=== PATIENT | female | born 1950 | race Caucasian/White ===

== ENCOUNTER 2018-04-01 14:04 | Outpatient (CLI) | payer MEDICARE, OTHER ==
[2018-04-01 14:30] LABS: CREATININE 0.8 mg/dL (0.4-1.0)
== END 2018-04-01 14:05 | disposition home or self-care (01) ==
LOC: LAB 14:04
PROVIDERS: ATTEND Nurse Practitioner Family
DX: Z79.899 Other long term (current) drug therapy (principal)
CPT/HCPCS: 36415; 82565; 84520

== ENCOUNTER 2018-04-08 14:37 | Outpatient (CLI) | payer MEDICARE, OTHER ==
--- NOTE | 2018-04-09 09:35 | DEXA Report ---
Reason: ENCOUNTER FOR SCREENING FO Procedure Date: 04/08/2018 Accession Number: [id number] / [id number] Procedure: DEX - Dexa Spine and/or Hip CPT Code: FULL RESULT: EXAM: Dexa Spine and/or Hip DATE: 04/08/2018 3:25 PM CLINICAL HISTORY: ENCOUNTER FOR SCREENING FO TECHNIQUE: Dual energy x-ray absorptiometry (DXA) was performed on a [employer] System. Regions measured are the AP Spine, femoral neck, and if needed forearm. COMPARISON: None. In accordance with the International Society for Clinical Densitometry (ISCD) guidelines, data from previous exams may be reanalyzed using current recommendations and techniques. This is done to allow a more accurate basis for comparison with the current study. FINDINGS: The data for the lumbar spine is as follows: BMD (g/cm/cm) T-SCORE Z-SCORE REGION L1 0.881 -2.1 -0.9 L2 0.953 -2.1 -0.9 L3 0.981 -1.8 -0.6 L4 0.950 -2.1 -0.9 TOTAL 0.942 -2.0 -0.8 NOTE: All evaluable vertebrae are used for classification The data for the hip is as follows: BMD (g/cm/cm) T-SCORE Z-SCORE REGION Neck 0.896 -1.0 0.2 TOTAL 0.902 -0.8 0.1 NOTE: The femoral neck or total proximal femur, whichever is lowest, is used for classification. IMPRESSION: THE WHO CLASSIFICATION BASED ON THE INTERNATIONAL REFERENCE STANDARD IS OSTEOPENIA. THE FRACTURE RISK IS INCREASED. RECOMMENDATION: Patients with diagnosis of osteoporosis or osteopenia should have regular bone mineral density assessment. For those eligible for Medicare, routine testing is allowed once every 2 years. Testing frequency can be increased for patients who have rapidly progressing disease or for those who are receiving medical therapy to restore bone mass. COMMENT: World Health Organization (WHO) definitions for osteoporosis and osteopenia: NORMAL BMD: T-score at -1.0 or higher, fracture risk is low OSTEOPENIA BMD: T-score between -1.0 and -2.5, fracture risk is increased. OSTEOPOROSIS BMD: T-score at -2.5 or lower, fracture risk is high. National Osteoporosis Foundation recommends: 1. Obtain adequate dietary calcium (at least 1200 mg per day) and vitamin D (400-800 international units per day). 2. Participate, as appropriate, in regular weightbearing and muscle-strengthening exercise. 3. Avoid tobacco use and reduce alcohol and caffeine intake. 4. For more detailed information see the website at www.NOF.org.
== END 2018-04-08 14:38 | disposition home or self-care (01) ==
LOC: DI 14:37
PROVIDERS: ATTEND Nurse Practitioner Family
DX: Z13.820 Encounter for screening for osteoporosis (principal); M85.89 Other specified disorders of bone density and structure, multiple sites; Z87.310 Personal history of (healed) osteoporosis fracture
CPT/HCPCS: 77080

== ENCOUNTER 2020-11-14 09:39 | Outpatient (CLI) | payer MEDICARE, OTHER ==
[2020-11-14 15:13] LABS: BASOPHILS # (AUTO) 0.1 10^3/uL (0.0-0.1); EOSINOPHILS # (AUTO) 0.3 10^3/uL (0.0-0.7); EOSINOPHILS % (AUTO) 3.5 %; HCT - HEMATOCRIT 44.1 % (37.0-47.0); LYMPHOCYTES # (AUTO) 1.8 10^3/uL (1.5-3.5); LYMPHOCYTES % (AUTO) 25.3 %; MEAN CORPUSCULAR HEMOGLOBIN 31.2 pg (27.0-31.0); MEAN CORPUSCULAR VOLUME 91.7 fL (81.0-99.0); MEAN PLATELET VOLUME 10.9 fL (7.9-10.8); MONOCYTES # (AUTO) 0.4 10^3/uL (0.0-1.0); MONOCYTES % (AUTO) 5.3 %; NEUTROPHILS # (AUTO) 4.6 10^3/uL (1.5-6.6); NEUTROPHILS % (AUTO) 64.6 %; PLT - PLATELET COUNT 316 10^3/uL (130-450); RED BLOOD COUNT 4.81 10^6/uL (4.20-5.40); RED CELL DISTRIBUTION WIDTH 12.5 % (12.0-15.0); WHITE BLOOD COUNT 7.2 x10^3/uL (4.8-10.8)
[2020-11-14 15:38] LABS: ALBUMIN 4.1 g/dL (3.2-5.5); ALBUMIN/GLOBULIN RATIO 1.2 (1.0-2.2); ALKALINE PHOSPHATASE 71 IU/L (42-121); ALT ALANINE AMINOTRANSFERASE 30 IU/L (10-60); AST ASPARTATE AMINOTRANSFERASE 26 IU/L (10-42); BUN - BLOOD UREA NITROGEN 25 mg/dL (6-20); CALCIUM 9.3 mg/dL (8.5-10.3); CARBON DIOXIDE - CO2 25 mmol/L (21-32); CHLORIDE 105 mmol/L (101-111); CHOL/HDL RATIO 5.2 (<4.4); CHOLESTEROL 303 mg/dL; CREATININE 0.8 mg/dL (0.4-1.0); GFR - MDRD 72 (>89); GLUCOSE 109 mg/dL (70-100); HDL CHOLESTEROL 58 mg/dL; LDL CHOLESTEROL,CALCULATED 213 mg/dL; LDL/HDL RATIO 3.7 (<4.4); POTASSIUM 4.3 mmol/L (3.5-5.0); SODIUM 139 mmol/L (135-145); TOTAL PROTEIN 7.4 g/dL (6.7-8.2); TRIGLYCERIDES 158 mg/dL; VLDL CHOLESTEROL 32 mg/dL
== END 2020-11-14 09:40 | disposition home or self-care (01) ==
LOC: LAB.S 09:39
PROVIDERS: ATTEND Nurse Practitioner Family
DX: J01.90 Acute sinusitis, unspecified (principal); Z13.220 Encounter for screening for lipoid disorders
CPT/HCPCS: 36415; 80053; 80061; 83721; 85025

== ENCOUNTER 2023-06-10 10:22 | Outpatient (CLI) | payer MEDICARE, OTHER ==
--- NOTE | 2023-06-10 11:11 | CARDIAC PROCEDURE NOTE ---
Stress Test Report Service Date: 06/10/23 Service Time: 11:00 Ordering Provider: Yoanna Mendieta NP Indication for Test: Assess response to exercise in the setting of patient-observed exertional tachcardia post a respiratory viral syndrome. Significant Medical History: "Emeli" is referred for an exercise tolerance test today, to assess her concern for palpitations and exertional intolerance that have followed a major respiratory viral syndrome that occurred just prior to the in 2022. 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 She is on no long-term standing medications, but has had some benefit from the use of Flonase and bcrr-veg-dwadvek [place] for her respiratory symptoms in the past few months. As she started to recover from her acute respiratory illness she was experiencing exertional tachycardia with low provocation, sometimes associated with lightheadedness (as well as a couple of documented low blood pressures), though all of this is less severe now. As she has attempted to become more active she has eliminated caffeine intake which she believes is helping somewhat. She has had to discontinue "working out" formally, though she is able to go up and down stairs and walk [place], sometimes needing to slow down or stop due to the combination of palpitations and/or shortness of breath. She has had no chest discomfort at these times. She also experiences some spontaneous palpitations, though typically not severe enough to be associated with lightheadedness when occurring at rest. Other potentially relevant history is that she had a major case of Valley Fever at age 9 and in early adulthood had some abnormal chest x-rays; she has not had formal re-evaluation for at least 2-3 decades. Cardiac Risk Factors: Positive for hyperlipidemia (in 11/04 fasting lipids included TChol 303, LDLc 213, HDLc 58 and TG 158; no prior treatment with "western" hypolipidemic medication); no history of hypertension, diabetes or tobacco smoking. Family history is unknown as she was adopted. Type of Stress Test: Exercise Treadmill Test (ETT) Procedure: -Exercise Treadmill Test- After signing informed consent, the patient performed treadmill exercise using a [employer] protocol. The patient exercised for 6 minutes 19 seconds and achieved a peak heart rate of 154 (102 percent predicted maximum heart rate for age), and an estimated workload of 7.5 METS. The test was terminated due to shortness of breath/fatigue. Resting heart rate: 86 Peak heart rate: 154 Normal response to exercise. Resting BP: 122/86 Peak BP: 176/80 Normal response of systolic and diastolic BP to exercise. Room air oxygen saturation was 95% at rest but decreased to 91% at peak exercise. Rhythm during exercise: Sinus rhythm throughout, with occasional isolated PVCs and rare isolated PACs. Symptoms: Dyspnea became limiting, without description of lightheadedness or any type of chest discomfort or pain. EKG at rest showed normal sinus rhythm with occasional PACs, with possible left atrial abnormality, with early precordial R/S transition and with small septal Q waves in leads II, III and aVF likely not deep nor wide enough to qualify as a prior inferior infarct pattern. EKG at peak stress showed no ischemia by EKG criteria. In Recovery BP initially increased then decreased, with concomitant HR decrease, both remaining elevated over baseline at 5:00 (HR 90, BP 162/69). No imaging was ordered with this stress test. ILamont MD, was present throughout this treadmill stress study and supervised it in its entirety. Summary: 1) Exercise tolerance moderarely above average for age and sex as evidenced by GENIA of -9%. 2) Abnormal resting EKG, though with interpretable ST/T segments. 3) Adequate level of exercise was achieved on this treadmill stress test. 4) Normal BP response to exercise. 5) No ischemic changes by EKG criteria were seen at peak stress. 6) Room air oxygen saturation decreased from 95-96% to 91% at peak exercise. 7) No imaging was ordered with this test. Conclusions and Recommendations: 1) Somewhat to her surprise, Emeli was able to achieve an exercise time that was above average for her age and she did not show a heart rate that "zoomed off" during exertion. Rather, there was a normal physiologic heart rate increase without any abrupt "steps" in rate that would suggest contribution from ectopic rhythm. There was no symptom nor EKG evidence of inducible cardiac ischemia. 2) Given that she also experiences resting palpitations and the perception of increased heart rates it would be very reasonable to complement this workup with a longitudinal rhythm assessment using a CAM patch for rhythm monitoring, for 7- 14 days. 3) I believe some of her symptoms and exertional drop in oxygen saturation could be explained by residual lung scarring or other functional pulmonary abnormality for which there has not been any recent evaluation. I would recommend referral to Pulmonology, and the complexity of her history of Valley fever and previously documented scarring should justify her being seen at the [facility] to get the best evaluation. Likely they would recommend full PFTs and a high-resolution chest CT in their system as the starting evaluation. 4) Lastly we discussed her previously documented hyperlipidemia with LDLc of 213 in 2020. If this value remains elevated to 190 or greater on a more contemporary fasting lipid panel, current Guidelines would recommend statin treatment for primary prevention (which she may or may not accept, given her bias towards herbal/natural remedies).
== END 2023-06-10 10:23 | disposition home or self-care (01) ==
LOC: DI 10:22
PROVIDERS: ATTEND Nurse Practitioner Family
DX: R00.2 Palpitations (principal); E78.5 Hyperlipidemia, unspecified
CPT/HCPCS: 93017

== ENCOUNTER 2023-07-04 13:46 | Outpatient (CLI) | payer MEDICARE, OTHER ==
--- NOTE | 2023-07-04 15:15 | CT Report ---
PROCEDURE: Chest WO INDICATIONS: DYSPNEA TECHNIQUE: A CT scan of the chest was performed. Intravenous contrast media was not administered. Images were re corded and evaluated at appropriate window settings. Reformats: axial MIP of the chest, coronal and s agittal. For radiation dose reduction, the following was used: automated exposure control, adjustment of mA and/or kV according to patient size. COMPARISON: None. FINDINGS: Image quality: Diagnostic. Chest wall and lower neck: No thyroid nodule which requires sonographic follow up. No axillary or sup raclavicular adenopathy by size. Lungs and pleura: No consolidation. No pleural effusions. No pneumothorax. No suspicious pulmonary n odules which require follow up. Benign 8 mm calcified granuloma of right upper lobe juxtapleural reg ion. Mediastinum: Heart size is normal. Minimal coronary calcifications. No pericardial effusion. No large vessel abnormality. No mediastinal adenopathy by size criteria. Bones: Osteopenia. No aggressive osseous abnormality. Kyphotic deformity of the spine, Schmorl's node lower thoracic vertebral body. Upper Abdomen: Unremarkable. IMPRESSION: 1. [id number]-[id number] coronary artery calcifications 2. Kyphosis of thoracic spine 3. Otherwise, no findings to explain patient's symptomatology Reviewed by: Santosh Cordova MD on 07/04/2023 3:14 PM PDT Approved by: Santosh Cordova MD on 07/04/2023 3:14 PM PDT Station ID: [id number]
== END 2023-07-04 13:47 | disposition home or self-care (01) ==
LOC: DI 13:46
PROVIDERS: ATTEND Nurse Practitioner Family
DX: R06.00 Dyspnea, unspecified (principal); I25.10 Atherosclerotic heart disease of native coronary artery without angina pectoris

== ENCOUNTER 2023-07-21 13:12 | Outpatient (CLI) | payer MEDICARE, OTHER | END 2023-07-21 13:13 | disposition home or self-care (01) | LOC: RT 13:12 | PROVIDERS: ATTEND Nurse Practitioner Family | DX: R06.00 Dyspnea, unspecified (principal) | CPT/HCPCS: 94010; 94727; 94729 ==

== ENCOUNTER 2023-12-01 10:00 | Outpatient (CLI) | payer MEDICARE, OTHER | END 2023-12-01 10:15 | disposition home or self-care (01) | LOC: LAB.N 10:00 | PROVIDERS: ATTEND Physician Assistant Medical | DX: N39.0 Urinary tract infection, site not specified (principal) | CPT/HCPCS: 87086 ==